=== PATIENT | male | born 1990 | race Caucasian/White ===

== ENCOUNTER 2017-12-01 09:40 | Emergency (ER) | payer MEDICAID ==
[2017-12-01] MEDS: LIDOCAINE/MYLANTA 40 ML BTL PO (10:37)
[2017-12-01] MEDS: ONDANSETRON (ODT) 4 MG TAB ODT (10:37)
[2017-12-01] MEDS: FAMOTIDINE 20 MG TAB PO (10:37)
[2017-12-01 10:55] LABS: ADD MAN DIFF? NO
[2017-12-01 11:02] LABS: WHITE BLOOD COUNT 4.6 10^3/ul (4.8-10.8)
[2017-12-01 11:02] LABS: BASOPHILS % 0.9 % (0.0-2.0); EOSINOPHILS # 0.1 10^3/ul (0.0-0.5); EOSINOPHILS % 2.2 % (0.0-7.0); HEMATOCRIT 41.8 % (42.0-52.0); HEMOGLOBIN 14.6 g/dl (14.0-18.0); LYMPHOCYTES # 1.7 10^3/ul (0.8-2.9); MEAN CORPUSCULAR HEMOGLOBIN 31.3 pg (29.0-33.0); MEAN CORPUSCULAR HGB CONC 34.9 g/dl (32.0-37.0); MEAN CORPUSCULAR VOLUME 89.7 fl (82.0-101.0); MEAN PLATELET VOLUME 8.7 fl (7.4-10.4); MONOCYTE # 0.3 10^3/ul (0.3-0.9); MONOCYTES % 6.3 % (0.0-11.0); NEUTROPHIL # 2.5 10^3/ul (1.6-7.5); NEUTROPHILS % 53.6 % (39.0-77.0); PLATELET COUNT 215 10^3/UL (140-415); RED BLOOD COUNT 4.66 10^6/ul (4.70-6.10)
[2017-12-01 11:20] LABS: ALANINE AMINOTRANSFERASE 60 IU/L (13-69); ALBUMIN 4.7 g/dl (3.3-4.9); ALBUMIN/GLOBULIN RATIO 1.38; ALKALINE PHOSPHATASE 87 IU/L (42-121); ANION GAP 16 (8-16); ASPARTATE AMINO TRANSFERASE 44 IU/L (15-46); BILIRUBIN,INDIRECT 1.1 mg/dl (0-1.1); BILIRUBIN,TOTAL 1.1 mg/dl (0.2-1.3); BLOOD UREA NITROGEN 10 mg/dl (7-20); CALCIUM 9.4 mg/dl (8.4-10.2); CARBON DIOXIDE 25 mmol/L (21-31); CHLORIDE 107 mmol/L (97-110); CREATININE 0.89 mg/dl (0.61-1.24); GLUCOSE 94 mg/dl (70-220); LIPASE 22 U/L (23-300); POTASSIUM 3.9 mmol/L (3.5-5.1); SODIUM 144 mmol/L (135-144); TOTAL PROTEIN 8.1 g/dl (6.1-8.1)
== END 2017-12-01 11:50 | disposition home or self-care (01) ==
LOC: FTE 09:40
DX: R10.13 Epigastric pain (principal)
CPT/HCPCS: 80053; 83690; 85025; 93005; 99284-25

== ENCOUNTER 2017-12-13 18:12 | Emergency (ER) | payer MEDICAID ==
[2017-12-13] MEDS: ACETAMINOPHEN 325 MG TAB PO (19:22)
== END 2017-12-13 20:04 | disposition home or self-care (01) ==
LOC: FTE 18:12
DX: K21.9 Gastro-esophageal reflux disease without esophagitis (principal)
CPT/HCPCS: 99283; Z7502

== ENCOUNTER 2018-01-25 22:23 | Emergency (ER) | payer SELFPAY, MEDICAID ==
[2018-01-25] MEDS: HYDROCODONE/APAP (5/325) TAB PO (23:57)
[2018-01-25] MEDS: IBUPROFEN 600 MG TAB PO (23:57)
== END 2018-01-26 01:10 | disposition home or self-care (01) ==
LOC: FTE 01-26 01:10
DX: S89.91XA Unspecified injury of right lower leg, initial encounter (principal); X58.XXXA Exposure to other specified factors, initial encounter; Y92.322 Soccer field as the place of occurrence of the external cause
CPT/HCPCS: 29505; 73562; 99283-25